=== PATIENT | male | born 1970 | race African-American/Black ===

== ENCOUNTER 2023-12-01 14:44 | Inpatient (IN) | payer OTHER ==
[2023-12-01 15:49] VITALS: BMI 29.2
[2023-12-01] MEDS ORDERED: BENZONATATE 200 MG CAPSULE PO PRN (19:05)
[2023-12-01] MEDS ORDERED: P-EPHED 60MG/TRIPROLIDI 2.5MG TABLET PO PRN (19:05)
[2023-12-01] MEDS ORDERED: MAGNESIUM HYDROX 2400MG/30ML ORAL SUSPENSION 30 ML CUP PO PRN (19:05)
[2023-12-01] MEDS ORDERED: guaiFENesin 600 MG TABLET.ER (FP) PO PRN (19:05)
[2023-12-01] MEDS ORDERED: IBUPROFEN 400 MG TABLET (FP) PO PRN (19:05)
[2023-12-01] MEDS ORDERED: MAG HYDROX/AL HYDROX/SIMETH 30 ML UNIT-DOSE CUP PO PRN (19:05)
[2023-12-01] MEDS ORDERED: BENZOCAINE/MENTHOL (CHLORASEPTIC ) LOZENGE MM PRN (19:05)
[2023-12-01] MEDS ORDERED: NICOTINE POLACRILEX 2 MG GUM BUC PRN (19:05)
[2023-12-01] MEDS ORDERED: ACETAMINOPHEN 325 MG TABLET (FP) PO PRN (19:05)
[2023-12-01] MEDS ORDERED: LOPERAMIDE HCL 2 MG CAPSULE PO PRN (19:05)
[2023-12-01] MEDS: MELATONIN 5 MG TABLETS PO SCH (23:00)
[2023-12-01] MEDS: THIAMINE HCL 100 MG TABLET (FP) PO SCH (23:00)
[2023-12-01] MEDS ORDERED: TUBERCULIN PPD 5 TU/0.1ML VIAL ID ONE (23:06)
[2023-12-01] MEDS: TUBERCULIN PPD 5 TU/0.1ML SYRINGE (IN PATIENT USE ONLY) ID ONE (23:08)
[2023-12-02] MEDS: PRENATAL VITAMINS W/ FOLIC ACID TABLET (FP) PO SCH (09:14)
[2023-12-02] MEDS: cloNIDine HCL 0.1 MG TABLET PO PRN (11:28)
[2023-12-02 12:14] LABS: HEMATOCRIT 37.2 % (35.4-49); MCH 33.8 pg (25.7-33.7); MCHC 34.9 g/dl (32.0-35.9); MEAN PLT VOLUME 7.5 fl (7.5-11.1); PLATELET COUNT 268 10^3/uL (134-434); RBC 3.84 M/mm3 (4.00-5.60); WHITE BLOOD COUNT 5.1 K/mm3 (4.0-10.0)
[2023-12-02 12:45] LABS: POTASSIUM 3.9 mmol/L (3.5-5.1)
[2023-12-02 12:48] LABS: ALBUMIN 3.2 g/dl (3.4-5.0); BLOOD UREA NITROGEN 13.6 mg/dL (7-18); CALCIUM 8.9 mg/dL (8.5-10.1)
[2023-12-02 12:51] LABS: CREATININE 0.9 mg/dL (0.55-1.3)
[2023-12-02 12:53] LABS: BILIRUBIN,TOTAL 0.4 mg/dL (0.2-1); TOT PROT 6.6 g/dl (6.4-8.2)
[2023-12-02] MEDS: NALTREXONE HCL 50 MG TABLET PO SCH (15:22)
[2023-12-02] MEDS: LISINOPRIL 10 MG TABLET PO SCH (15:22)
[2023-12-03] MEDS: GABAPENTIN 400 MG CAPSULE PO SCH (10:05)
[2023-12-03] MEDS: FERROUS SO4 325 MG TABLET (FP) PO SCH (11:23)
[2023-12-04] MEDS: FERROUS SO4 325 MG TABLET (FP) PO SCH (09:49)
[2023-12-04 12:43] LABS: PH,URINE 5.5 (5.0-8.0); URINE APPEARANCE CLEAR; URINE BILIRUBIN NEGATIVE (NEGATIVE); URINE COLOR YELLOW; URINE GLUCOSE (UA) NEGATIVE (NEGATIVE); URINE KETONE NEGATIVE (NEGATIVE); URINE LEUK ESTERASE NEGATIVE (NEGATIVE); URINE NITRITE NEGATIVE (NEGATIVE); URINE PROTEIN NEGATIVE (NEGATIVE); URINE UROBILINOGEN 0.2 mg/dL (0.2-1.0)
[2023-12-04] MEDS: IBUPROFEN 600 MG TABLET (FP) PO PRN (14:38)
[2023-12-07] MEDS ORDERED: hydrOXYzine PAMOATE 25 MG CAPSULE (FP) PO PRN (12:10)
[2023-12-07] MEDS: METHYL SALICYLATE/MENTHOL OINT 30 GM TUBE TP SCH (14:42)
[2023-12-07] MEDS: MELATONIN 5 MG TABLETS PO SCH (21:32)
[2023-12-08] MEDS: LISINOPRIL 20 MG TABLET PO SCH (09:36)
[2023-12-09] MEDS: POLYETHYLENE GLYCOL (HEALTHYLAX) 3350 17 GM PACKET PO PRN (21:21)
[2023-12-12] MEDS: DOCUSATE SODIUM 100 MG CAPSULE (FP) PO ONE (13:54)
[2023-12-14] MEDS: BISACODYL 5 MG TABLET.DR (FP) PO PRN (09:18)
[2023-12-15 07:24] VITALS: PULSE 63; TEMP 97.7
[2023-12-15 09:05] VITALS: BP 146/89; RESP 18
== END 2023-12-15 10:17 | disposition home or self-care (01) | DRG 895 ==
LOC: YASAS 14:44 → Y3W 22:47
PROVIDERS: ADMIT Allergy & Immunology; ATTEND Psychiatry & Neurology Pain Medicine
PROC: HZ42ZZZ Group Counseling for Substance Abuse Treatment, Cognitive-Behavioral (ICD-10-PCS; principal; 2023-12-01)
DX: F10.20 Alcohol dependence, uncomplicated (principal); F17.210 Nicotine dependence, cigarettes, uncomplicated; G62.9 Polyneuropathy, unspecified; G47.00 Insomnia, unspecified; H53.8 Other visual disturbances; I10 Essential (primary) hypertension; K59.00 Constipation, unspecified; M16.12 Unilateral primary osteoarthritis, left hip; R73.03 Prediabetes
CPT/HCPCS: 36415; 80053; 80305; 81003; 85027; 86593; 86780; 87635

== ENCOUNTER 2024-09-09 08:26 | Inpatient (IN) | payer OTHER ==
[2024-09-09 08:52] VITALS: BMI 29.2
[2024-09-09] MEDS ORDERED: BENZOCAINE/MENTHOL (CHLORASEPTIC ) LOZENGE MM PRN (09:55)
[2024-09-09] MEDS ORDERED: DICYCLOMINE HCL 10 MG CAPSULE PO PRN (09:55)
[2024-09-09] MEDS ORDERED: BISMUTH SUBSALICYLATE 262 MG/15 ML BTL PO PRN (09:55)
[2024-09-09] MEDS ORDERED: MAGNESIUM HYDROX 2400MG/30ML ORAL SUSPENSION 30 ML CUP PO PRN (09:55)
[2024-09-09] MEDS ORDERED: MAG HYDROX/AL HYDROX/SIMETH 30 ML UNIT-DOSE CUP PO PRN (09:55)
[2024-09-09] MEDS ORDERED: ACETAMINOPHEN 325 MG TABLET (FP) PO PRN (09:55)
[2024-09-09] MEDS ORDERED: LOPERAMIDE HCL 2 MG CAPSULE PO PRN (09:55)
[2024-09-09] MEDS ORDERED: POLYETHYLENE GLYCOL (HEALTHYLAX) 3350 17 GM PACKET PO PRN (09:55)
[2024-09-09] MEDS ORDERED: NALOXONE (NARCAN) HCL 4 MG/0.1 ML SPRAY NS PRN (09:55)
[2024-09-09] MEDS ORDERED: BENZONATATE 200 MG CAPSULE PO PRN (09:55)
[2024-09-09] MEDS ORDERED: IBUPROFEN 400 MG TABLET (FP) PO PRN (09:55)
[2024-09-09] MEDS: PRENATAL VITAMINS W/ FOLIC ACID TABLET (FP) PO SCH (10:22)
[2024-09-09] MEDS: chlordiazePOXIDE HCL 25 MG CAPSULE PO PRN (13:51)
[2024-09-09] MEDS ORDERED: ACETAMINOPHEN 500 MG TABLET (FP) PO PRN (15:59)
[2024-09-09] MEDS: chlordiazePOXIDE HCL 25 MG CAPSULE PO SCH (17:28)
[2024-09-09] MEDS: APIXABAN 5 MG TABLET PO SCH (22:17)
[2024-09-09] MEDS: MELATONIN 5 MG TABLETS PO SCH (22:17)
[2024-09-09] MEDS: dilTIAZem HCL 30 MG TABLET PO SCH (22:17)
[2024-09-09] MEDS: THIAMINE 100 MG TABLET PO SCH (22:18)
[2024-09-10] MEDS: LISINOPRIL 20 MG TABLET PO SCH (10:41)
[2024-09-10] MEDS: IBUPROFEN 600 MG TABLET (FP) PO PRN (14:59)
[2024-09-10] MEDS: ONDANSETRON *ODT* 4 MG TABLET SL PRN (17:24)
[2024-09-10] MEDS: guaiFENesin 600 MG TABLET.ER (FP) PO PRN (17:24)
[2024-09-11] MEDS: ALBUTEROL SO4 HFA INHALER IH PRN (05:06)
[2024-09-11] MEDS: chlordiazePOXIDE HCL 25 MG CAPSULE PO SCH (05:08)
[2024-09-11 08:35] LABS: POTASSIUM 4.2 mmol/L (3.5-5.1)
[2024-09-11 08:39] LABS: BASO % 0.7 % (0-2.0); CALCIUM 8.8 mg/dL (8.5-10.1); EOS % 5.1 % (0-4.5); HEMATOCRIT 37.5 % (35.4-49); HEMOGLOBIN 12.5 GM/dL (11.7-16.9); LYMPH % 18.6 % (8-40); MCH 33.3 pg (25.7-33.7); MCHC 33.3 g/dl (32.0-35.9); MEAN CELL VOLUME 100.2 fl (80-96); MONO % 7.3 % (3.8-10.2); NEUT % 68.3 % (42.8-82.8); PLATELET COUNT 205 10^3/uL (134-434); RBC 3.75 M/mm3 (4.00-5.60); WHITE BLOOD COUNT 4.6 K/mm3 (4.0-10.0)
[2024-09-11 08:40] LABS: ALBUMIN 3.2 g/dl (3.4-5.0); BLOOD UREA NITROGEN 12.9 mg/dL (7-18)
[2024-09-11 08:45] LABS: BILIRUBIN,TOTAL 0.3 mg/dL (0.2-1); TOT PROT 6.1 g/dl (6.4-8.2)
[2024-09-11] MEDS: hydrOXYzine PAMOATE 25 MG CAPSULE (FP) PO PRN (10:33)
[2024-09-11] MEDS: METHOCARBAMOL 500 MG TABLET PO PRN (10:33)
[2024-09-11] MEDS ORDERED: LORazepam 1 MG TABLET PO PRN (14:10)
[2024-09-11] MEDS: LORazepam 2 MG TABLET PO SCH (17:14)
[2024-09-12] MEDS ORDERED: chlordiazePOXIDE HCL 10 MG CAPSULE PO PRN
[2024-09-12] MEDS: FUROSEMIDE 20 MG TABLET (FP) PO ONE (02:50)
[2024-09-12] MEDS ORDERED: chlordiazePOXIDE HCL 10 MG CAPSULE PO SCH (05:00)
[2024-09-12] MEDS: LORazepam 1 MG TABLET PO SCH (05:42)
[2024-09-13] MEDS ORDERED: LORazepam 0.5 MG TABLET PO PRN
[2024-09-13] MEDS ORDERED: chlordiazePOXIDE HCL 10 MG CAPSULE PO SCH (05:00)
[2024-09-13] MEDS: LORazepam 0.5 MG TABLET PO SCH (05:49)
[2024-09-13] MEDS: NALOXONE (NYS OPIOID OVERDOSE PROGRAM) 4 MG/0.1 ML SPRAY NS SCH (15:23)
[2024-09-14] MEDS ORDERED: chlordiazePOXIDE HCL 10 MG CAPSULE PO ONE (05:00)
[2024-09-14] MEDS: LORazepam 0.5 MG TABLET PO ONE (05:55)
[2024-09-14 09:50] VITALS: BP 123/93; PULSE 100; RESP 16; TEMP 97.3
== END 2024-09-14 11:15 | disposition home or self-care (01) | DRG 897 ==
LOC: YASAS 08:26 → Y6N 09:56
PROVIDERS: ADMIT Allergy & Immunology; ATTEND Surgery
PROC: HZ2ZZZZ Detoxification Services for Substance Abuse Treatment (ICD-10-PCS; principal; 2024-09-09)
DX: F10.230 Alcohol dependence with withdrawal, uncomplicated (principal); F17.210 Nicotine dependence, cigarettes, uncomplicated; F10.282 Alcohol dependence with alcohol-induced sleep disorder; F10.24 Alcohol dependence with alcohol-induced mood disorder; I10 Essential (primary) hypertension; I48.91 Unspecified atrial fibrillation; Z79.01 Long term (current) use of anticoagulants; G47.00 Insomnia, unspecified; M17.11 Unilateral primary osteoarthritis, right knee; M25.571 Pain in right ankle and joints of right foot; R73.03 Prediabetes; Z20.2 Contact with and (suspected) exposure to infections with a predominantly sexual mode of transmission; Z99.89 Dependence on other enabling machines and devices
CPT/HCPCS: 36415; 80053; 84450; 85025; 86593; 86780; 93005; 93010; Q0162

== ENCOUNTER 2024-11-02 12:12 | Inpatient (IN) | payer OTHER ==
[2024-11-02 12:51] VITALS: BMI 28.5
[2024-11-02] MEDS ORDERED: DICYCLOMINE HCL 10 MG CAPSULE PO PRN (13:12)
[2024-11-02] MEDS ORDERED: IBUPROFEN 400 MG TABLET (FP) PO PRN (13:12)
[2024-11-02] MEDS ORDERED: NICOTINE POLACRILEX 2 MG GUM BUC PRN (13:12)
[2024-11-02] MEDS ORDERED: MAGNESIUM HYDROX 2400MG/30ML ORAL SUSPENSION 30 ML CUP PO PRN (13:12)
[2024-11-02] MEDS ORDERED: ONDANSETRON *ODT* 4 MG TABLET SL PRN (13:12)
[2024-11-02] MEDS ORDERED: IBUPROFEN 600 MG TABLET (FP) PO PRN (13:12)
[2024-11-02] MEDS ORDERED: P-EPHED 60MG/TRIPROLIDI 2.5MG TABLET PO PRN (13:12)
[2024-11-02] MEDS ORDERED: BISMUTH SUBSALICYLATE 262 MG/15 ML BTL PO PRN (13:12)
[2024-11-02] MEDS ORDERED: NICOTINE POLACRILEX 2 MG LOZENGE BC PRN (13:12)
[2024-11-02] MEDS ORDERED: LOPERAMIDE HCL 2 MG CAPSULE PO PRN (13:12)
[2024-11-02] MEDS ORDERED: MAG HYDROX/AL HYDROX/SIMETH 30 ML UNIT-DOSE CUP PO PRN (13:12)
[2024-11-02] MEDS ORDERED: NALOXONE (NARCAN) HCL 4 MG/0.1 ML SPRAY NS PRN (13:12)
[2024-11-02] MEDS ORDERED: POLYETHYLENE GLYCOL (HEALTHYLAX) 3350 17 GM PACKET PO PRN (13:12)
[2024-11-02] MEDS: diazePAM 5 MG TABLET PO SCH (17:14)
[2024-11-02] MEDS ORDERED: dilTIAZem HCL 30 MG TABLET PO SCH (22:00)
[2024-11-02] MEDS: ACETAMINOPHEN 325 MG TABLET (FP) PO PRN (22:14)
[2024-11-02] MEDS: THIAMINE 100 MG TABLET PO SCH (22:14)
[2024-11-02] MEDS: APIXABAN 5 MG TABLET PO SCH (22:14)
[2024-11-02] MEDS: hydrOXYzine PAMOATE 25 MG CAPSULE (FP) PO PRN (22:16)
[2024-11-02] MEDS: MELATONIN 5 MG TABLETS PO SCH (22:24)
[2024-11-03] MEDS: dilTIAZem HCL 30 MG TABLET PO SCH (00:43)
[2024-11-03] MEDS: METHOCARBAMOL 500 MG TABLET PO PRN (01:41)
[2024-11-03] MEDS: guaiFENesin 600 MG TABLET.ER (FP) PO PRN (01:41)
[2024-11-03] MEDS: PRENATAL VITAMINS W/ FOLIC ACID TABLET (FP) PO SCH (10:05)
[2024-11-03] MEDS: LISINOPRIL 20 MG TABLET PO SCH (10:07)
[2024-11-03] MEDS: FLU VACCINE (FLULAVAL) PF 45 MCG/0.5 ML SYRINGE 2024-2025 IM ONE (11:05)
[2024-11-03] MEDS: PNEUMOC 20-VAL CONJ-DIP CRM/PF 0.5 ML SYRINGE IM ONE (11:06)
[2024-11-03 11:31] LABS: BLOOD UREA NITROGEN 11.7 mg/dL (7-18); CALCIUM 8.8 mg/dL (8.5-10.1)
[2024-11-03 11:32] LABS: ALBUMIN 3.1 g/dl (3.4-5.0)
[2024-11-03 11:34] LABS: CREATININE 0.9 mg/dL (0.55-1.3)
[2024-11-03 11:35] LABS: TOT PROT 5.8 g/dl (6.4-8.2)
[2024-11-03 11:37] LABS: HEMOGLOBIN 13.5 GM/dL (11.7-16.9); MCH 32.8 pg (25.7-33.7); MCHC 33.7 g/dl (32.0-35.9); MEAN CELL VOLUME 97.4 fl (80-96); PLATELET COUNT 173 10^3/uL (134-434); RBC 4.11 M/mm3 (4.00-5.60); RDW 14.8 % (11.9-15.9); WHITE BLOOD COUNT 5.1 K/mm3 (4.0-10.0)
[2024-11-03 12:36] LABS: HIV INTERPRETATION NEGATIVE (NEGATIVE)
[2024-11-03] MEDS: amLODIPine BESYLATE 2.5 MG TABLET (FP) PO ONE (17:05)
[2024-11-04] MEDS: ALBUTEROL SO4 HFA INHALER IH PRN (01:20)
[2024-11-04] MEDS: BENZONATATE 200 MG CAPSULE PO PRN (01:21)
[2024-11-04] MEDS: cloNIDine HCL 0.1 MG TABLET PO ONE (05:27)
[2024-11-04] MEDS: diazePAM 5 MG TABLET PO SCH (05:27)
[2024-11-04] MEDS: diazePAM 5 MG TABLET PO PRN (17:44)
[2024-11-05] MEDS: diazePAM 5 MG TABLET PO SCH (05:18)
[2024-11-06] MEDS: BENZOCAINE/MENTHOL (CHLORASEPTIC ) LOZENGE MM PRN (00:39)
[2024-11-06] MEDS: diazePAM 5 MG TABLET PO ONE (05:31)
[2024-11-06 09:18] VITALS: BP 131/109; PULSE 107; RESP 16; TEMP 97.3
== END 2024-11-06 09:33 | disposition home or self-care (01) | DRG 897 ==
LOC: YASAS 12:12 → Y3N 13:23
PROVIDERS: ADMIT Allergy & Immunology; ATTEND Allergy & Immunology
PROC: HZ2ZZZZ Detoxification Services for Substance Abuse Treatment (ICD-10-PCS; principal; 2024-11-02)
DX: F10.230 Alcohol dependence with withdrawal, uncomplicated (principal); F17.210 Nicotine dependence, cigarettes, uncomplicated; F31.9 Bipolar disorder, unspecified; F41.9 Anxiety disorder, unspecified; G62.9 Polyneuropathy, unspecified; I10 Essential (primary) hypertension; I48.91 Unspecified atrial fibrillation; J45.909 Unspecified asthma, uncomplicated; R07.9 Chest pain, unspecified; R73.03 Prediabetes; R94.5 Abnormal results of liver function studies; Z79.01 Long term (current) use of anticoagulants; Z86.19 Personal history of other infectious and parasitic diseases; M17.0 Bilateral primary osteoarthritis of knee; Z99.89 Dependence on other enabling machines and devices
CPT/HCPCS: 36415; 80053; 80305; 80307; 85027; 86593; 86780; 86803; 87389; 93005; 93010

== ENCOUNTER 2025-02-14 10:34 | Inpatient (IN) | payer OTHER ==
[2025-02-14 11:03] VITALS: BMI 29.1
[2025-02-14] MEDS ORDERED: ONDANSETRON *ODT* 4 MG TABLET SL PRN (11:18)
[2025-02-14] MEDS ORDERED: guaiFENesin 600 MG TABLET.ER (FP) PO PRN (11:18)
[2025-02-14] MEDS ORDERED: DICYCLOMINE HCL 10 MG CAPSULE PO PRN (11:18)
[2025-02-14] MEDS ORDERED: MAGNESIUM HYDROX 2400MG/30ML ORAL SUSPENSION 30 ML CUP PO PRN (11:18)
[2025-02-14] MEDS ORDERED: POLYETHYLENE GLYCOL (HEALTHYLAX) 3350 17 GM PACKET PO PRN (11:18)
[2025-02-14] MEDS ORDERED: LOPERAMIDE HCL 2 MG CAPSULE PO PRN (11:18)
[2025-02-14] MEDS ORDERED: NICOTINE POLACRILEX 2 MG GUM BUC PRN (11:18)
[2025-02-14] MEDS ORDERED: ACETAMINOPHEN 325 MG TABLET (FP) PO PRN (11:18)
[2025-02-14] MEDS ORDERED: NALOXONE (NARCAN) HCL 4 MG/0.1 ML SPRAY NS PRN (11:18)
[2025-02-14] MEDS ORDERED: BENZOCAINE/MENTHOL (CHLORASEPTIC ) LOZENGE MM PRN (11:18)
[2025-02-14] MEDS ORDERED: NICOTINE POLACRILEX 2 MG LOZENGE BC PRN (11:18)
[2025-02-14] MEDS ORDERED: MAG HYDROX/AL HYDROX/SIMETH 30 ML UNIT-DOSE CUP PO PRN (11:18)
[2025-02-14] MEDS ORDERED: BENZONATATE 200 MG CAPSULE PO PRN (11:18)
[2025-02-14] MEDS ORDERED: NICOTINE 14 MG/24 HOURS TOPICAL PATCH TD ONE (11:49)
[2025-02-14] MEDS: NICOTINE 14 MG/24 HOURS TOPICAL PATCH TD SCH (11:50)
[2025-02-14] MEDS ORDERED: ALBUTEROL SO4 HFA INHALER IH PRN (12:56)
[2025-02-14] MEDS: diazePAM 5 MG TABLET PO PRN (13:54)
[2025-02-14] MEDS: diazePAM 5 MG TABLET PO SCH (18:02)
[2025-02-14] MEDS: MELATONIN 5 MG TABLETS PO SCH (22:30)
[2025-02-14] MEDS: THIAMINE 100 MG TABLET PO SCH (22:30)
[2025-02-14] MEDS: APIXABAN 5 MG TABLET PO SCH (22:33)
[2025-02-14] MEDS: METHOCARBAMOL 500 MG TABLET PO PRN (22:33)
[2025-02-14] MEDS: dilTIAZem HCL 30 MG TABLET PO SCH (22:36)
[2025-02-15] MEDS: hydrOXYzine PAMOATE 25 MG CAPSULE (FP) PO PRN (01:57)
[2025-02-15] MEDS: LISINOPRIL 20 MG TABLET PO SCH (10:12)
[2025-02-15] MEDS: PRENATAL VITAMINS W/ FOLIC ACID TABLET (FP) PO SCH (10:13)
[2025-02-15 11:31] LABS: HEMATOCRIT 40.3 % (40.1-51.0); MCHC 34.7 g/dl (32.3-36.5); MEAN CELL VOLUME 93.7 fl (79.0-92.2); MEAN PLT VOLUME 11.5 fl (9.4-12.4); PLATELET COUNT 248 x10^3/uL (163-337); RDW 13.9 % (12.2-16.1)
[2025-02-15 11:36] LABS: POTASSIUM 4.3 mmol/L (3.5-5.1)
[2025-02-15 11:53] LABS: CALCIUM 9.8 mg/dL (8.5-10.1)
[2025-02-15 11:55] LABS: ALBUMIN 3.7 g/dl (3.4-5.0); BLOOD UREA NITROGEN 19.2 mg/dL (7-18)
[2025-02-15 11:57] LABS: CREATININE 1.1 mg/dL (0.55-1.3)
[2025-02-15 11:59] LABS: TOT PROT 7.6 g/dl (6.4-8.2)
[2025-02-15] MEDS: MELATONIN 5 MG TABLETS PO SCH (22:15)
[2025-02-16] MEDS: diazePAM 5 MG TABLET PO SCH (05:57)
[2025-02-16] MEDS ORDERED: EMPAGLIFLOZIN (JARDIANCE) 10 MG TABLET PO SCH (14:15)
[2025-02-16] MEDS: EMPAGLIFLOZIN (JARDIANCE) 10 MG TABLET PO SCH (14:35)
[2025-02-16] MEDS: NALTREXONE HCL 50 MG TABLET PO ONE (16:47)
[2025-02-16] MEDS: ATORVASTATIN CA 40 MG TABLET (FP) PO SCH (22:38)
[2025-02-17] MEDS: diazePAM 5 MG TABLET PO SCH (06:09)
[2025-02-17] MEDS: NALTREXONE HCL 50 MG TABLET PO SCH (10:35)
[2025-02-17 13:17] VITALS: RESP 18
[2025-02-17] MEDS: SUVOREXANT 10 MG TABLET PO PRN (22:19)
[2025-02-18] MEDS: diazePAM 5 MG TABLET PO ONE (05:54)
[2025-02-18] MEDS: NALTREXONE MICROSPHERES (VIVITROL) 380 MG DISP.SYRIN IM ONE (06:28)
[2025-02-18 09:21] VITALS: BP 151/88; PULSE 66; TEMP 98.1
== END 2025-02-18 10:16 | disposition home or self-care (01) | DRG 897 ==
LOC: YASAS 10:34 → Y6N 11:37
PROVIDERS: ADMIT Allergy & Immunology; ATTEND Allergy & Immunology
PROC: HZ2ZZZZ Detoxification Services for Substance Abuse Treatment (ICD-10-PCS; principal; 2025-02-14)
DX: F10.230 Alcohol dependence with withdrawal, uncomplicated (principal); F17.210 Nicotine dependence, cigarettes, uncomplicated; F31.9 Bipolar disorder, unspecified; F10.282 Alcohol dependence with alcohol-induced sleep disorder; F10.24 Alcohol dependence with alcohol-induced mood disorder; F41.9 Anxiety disorder, unspecified; G62.9 Polyneuropathy, unspecified; I48.91 Unspecified atrial fibrillation; I10 Essential (primary) hypertension; J45.909 Unspecified asthma, uncomplicated; E78.5 Hyperlipidemia, unspecified; E11.9 Type 2 diabetes mellitus without complications; Z79.84 Long term (current) use of oral hypoglycemic drugs; Z79.01 Long term (current) use of anticoagulants; Z95.810 Presence of automatic (implantable) cardiac defibrillator
CPT/HCPCS: 36415; 80053; 80305; 80307; 85027; 86593; 86780; J2315